=== PATIENT | female | born 1970 | race Caucasian/White ===

== ENCOUNTER 2018-05-06 08:52 | Outpatient (CLI) | payer OTHER ==
[2018-05-06] MEDS ORDERED: Iopamidol 370 76% 100 ML VIAL ONE (09:00)
--- NOTE | 2018-05-06 14:29 | CT ---
CT ABDOMEN AND PELVIS WITH IV CONTRAST: Technique: Multiple axial tomograms were obtained through the abdomen and pelvis with IV enhancement. Indication: Right lower quadrant abdominal pain. FINDINGS: Lung bases appear clear. The liver, spleen, and pancreas are unremarkable. Post cholecystectomy changes noted. Stomach and duo denum unremarkable. Adrenal glands normal. Kidneys unremarkable. Small bowel loops appear normal. The appendix is identified and appears normal. Colon unremarkable. A deyanira normal caliber. Images through pelvis show evidence of hysterectomy. Bone windows show symmetric sclerosis along the iliac side of both SI joints. Focal sclerosis in the right iliac wing suggest a bone island. IMPRESSION: No evidence of acute abnormality. POS: [facility]
== END 2018-05-06 08:53 | disposition home or self-care (01) ==
LOC: SCSCT 08:52
PROVIDERS: ATTEND Family Medicine
DX: R10.30 Lower abdominal pain, unspecified (principal)
CPT/HCPCS: 74177

== ENCOUNTER 2020-01-15 06:12 | Outpatient (CLI) | payer OTHER ==
[2020-01-15 10:12] LABS: #Basophils 0.1 thou/uL (0.0-0.2); #Eosinphils 0.2 thou/uL (0.0-0.7); #Lymphocytes 3.3 thou/uL (1.20-3.40); #Monocytes 0.6 thou/uL (0.11-0.59); #Neutrophils 7.4 thou/uL (1.40-6.50); %Basophils 0.6 % (0.0-1.0); %Eosinophils 1.4 % (0.0-10.0); %Monocytes 4.8 % (0.0-10.0); %Neutrophils 64.2 % (42.0-75.0); Mean Corpuscular HGB CONC 33.5 g/dL (32.0-36.0); Mean Corpuscular Hemoglobin 30.4 pg (27.0-31.0); Mean Corpuscular Volume 90.9 fL (78.0-98.0); Mean Platelet Volume 7.2 fL (7.4-10.4); Platelet Count 355 thou/uL (130-400); Red Blood Cell (RBC) Count 3.94 mill/uL (4.20-5.40); White Blood Cell (WBC) Count 11.5 thou/uL (4.8-10.8)
[2020-01-16 11:37] LABS: SARS-CoV-2 MS2 Positive; SARS-CoV-2 N Gene Negative; SARS-CoV-2 S Gene Negative; SARS-CoV-2 orf1ab Negative
== END 2020-01-15 06:13 | disposition home or self-care (01) ==
LOC: LABBT 06:12
PROVIDERS: ATTEND Surgery
DX: Z01.812 Encounter for preprocedural laboratory examination (principal); Z11.59 Encounter for screening for other viral diseases; N60.82 Other benign mammary dysplasias of left breast
CPT/HCPCS: 87635; U0003

== ENCOUNTER 2020-01-19 12:20 | Day surgery (SDC) | payer OTHER ==
[2020-01-14 14:38] VITALS: BMI 26.4
[~2020-01-19 12:20] MED LIST: Lidocaine 1% PF 5 ML VIAL ONE; Ondansetron PF 4 MG/2 ML Vial ONE; PROPOFOL 200 MG/20 ML VIAL ONE; diphenhydrAMINE 50 MG/ML VIAL ONE
[2020-01-19] MEDS ORDERED: Fentanyl 100 MCG/2 ML VIAL ONE (15:15)
[2020-01-19] MEDS ORDERED: Bupivacaine PF 0.5% 30 ML VIAL ONE (15:19)
[2020-01-19] MEDS ORDERED: Lidocaine 2% PF 5 ML VIAL ONE (15:19)
--- NOTE | 2020-01-20 06:38 | OP ---
DATE OF PROCEDURE: 01/19/2020 PREOPERATIVE DIAGNOSIS: Left breast abscess. PROCEDURE PERFORMED: Excision of left breast abscess. INDICATIONS: The patient is a 49-year-old female, who has had chronic sinus drainage from her left breast with erythema, did not respond to antibiotics. FINDINGS: About 1.5-cm firm mass containing purulent fluid. DESCRIPTION OF PROCEDURE: After informed consent was obtained, the patient was taken to the operating room, given general endotracheal anesthesia, placed in the supine position. Her breast was prepped and draped in usual fashion. Local anesthesia was infiltrated subcutaneously and deep. An elliptical circumareolar incision was performed. The mass was excised. Cultures were obtained, sent for culture sensitivity and Gram-stain. The mass was sent to Pathology for further analysis. Hemostasis was achieved with electrocautery. The wound was thoroughly irrigated and packed open with Betadine gauze. Sterile bandage applied. The patient tolerated the procedure well, transferred to Recovery in good condition. Sponge and needle count verified correct x2. Job ID: [id number]
== END 2020-01-19 17:20 | disposition home or self-care (01) ==
LOC: SDC 12:20
PROVIDERS: ATTEND Surgery
PROC: 0HBU0ZZ Excision of Left Breast, Open Approach (ICD-10-PCS; principal; 2020-01-19)
DX: N61.1 Abscess of the breast and nipple (principal); E11.9 Type 2 diabetes mellitus without complications; F17.210 Nicotine dependence, cigarettes, uncomplicated; Z79.84 Long term (current) use of oral hypoglycemic drugs; Z79.899 Other long term (current) drug therapy; Z88.2 Allergy status to sulfonamides; Z88.5 Allergy status to narcotic agent
CPT/HCPCS: 36416; 87070; 87076; 87205; 88305; J0690; J1200; J2001; J2405; J2704; J3010; S0020

== ENCOUNTER 2020-06-07 06:16 | Outpatient (CLI) | payer OTHER ==
[2020-06-07 09:54] LABS: #Eosinphils 0.3 10x3/uL (0.0-0.5); #Monocytes 0.6 10x3/uL (0.0-1.1); #Neutrophils 6.2 10x3/uL (1.5-8.4); %Basophils 0.4 % (0.0-2.0); %Eosinophils 2.7 % (0.0-6.0); %Lymphocytes 29.6 % (18.0-47.0); %Monocytes 5.8 % (0.0-10.0); %Neutrophils 60.7 % (40.0-75.0); Hemoglobin 12.3 g/dL (12.0-16.0); Mean Corpuscular HGB CONC 33.7 G/DL (32.0-36.0); Mean Corpuscular Hemoglobin 29.9 PG (27.0-33.0); Mean Corpuscular Volume 88.8 fl (80.0-100.0); Mean Platelet Volume 9.2 fl (7.4-10.4); Platelet Count 348 10x3/uL (130-400); RBC Distribution Width 13.3 % (11.5-14.5); Red Blood Cell (RBC) Count 4.11 10x6/uL (3.90-5.20); White Blood Cell (WBC) Count 10.2 10x3/uL (4.5-11.0)
[2020-06-07 23:33] LABS: SARS-CoV-2 MS2 Positive; SARS-CoV-2 N Gene Negative; SARS-CoV-2 S Gene Negative; SARS-CoV-2 by NAA Not Detected (NotDetected); SARS-CoV-2 orf1ab Negative
== END 2020-06-07 06:17 | disposition home or self-care (01) ==
LOC: LABBT 06:16
PROVIDERS: ATTEND Surgery
DX: Z01.812 Encounter for preprocedural laboratory examination (principal); Z20.828 Contact with and (suspected) exposure to other viral communicable diseases; N64.52 Nipple discharge
CPT/HCPCS: 85025; 87635; U0003

== ENCOUNTER → 2020-06-10 | Day surgery (SDC) | payer OTHER ==
[2020-06-09 11:53] VITALS: BMI 34.2
[~2020-06-10] MED LIST changes: +Bupivacaine 0.25% HCL 30 ML VIAL ONE; +Famotidine/PF 20 mg/2ml Vial ONE; -Lidocaine 1% PF 5 ML VIAL ONE; +Lidocaine 1% w/Epinephrine 1:100K 20 ML VIAL ONE; -PROPOFOL 200 MG/20 ML VIAL ONE; +Scopolamine 1.5 mg/72 hour Patch ONE; -diphenhydrAMINE 50 MG/ML VIAL ONE
== END ==
LOC: SDC 06:11
PROVIDERS: ATTEND Surgery
DX: N64.52 Nipple discharge (principal); E11.9 Type 2 diabetes mellitus without complications; F17.210 Nicotine dependence, cigarettes, uncomplicated; Z53.9 Procedure and treatment not carried out, unspecified reason; Z79.84 Long term (current) use of oral hypoglycemic drugs; Z79.899 Other long term (current) drug therapy; Z88.2 Allergy status to sulfonamides; Z88.5 Allergy status to narcotic agent
CPT/HCPCS: J0690; J2405; S0020; S0028

== ENCOUNTER 2020-07-08 08:54 | Day surgery (SDC) | payer OTHER ==
[~2020-07-08 08:54] MED LIST changes: -Famotidine/PF 20 mg/2ml Vial ONE; +Fentanyl 100 MCG/2 ML VIAL ONE; -Ondansetron PF 4 MG/2 ML Vial ONE; -Scopolamine 1.5 mg/72 hour Patch ONE
[2020-07-08] MEDS ORDERED: Famotidine/PF 20 mg/2ml Vial ONE (09:08)
[2020-07-08] MEDS ORDERED: Scopolamine 1.5 mg/72 hour Patch ONE (09:19)
[2020-07-08] MEDS ORDERED: PROPOFOL 0 ML ONE (09:47)
[2020-07-08] MEDS ORDERED: PROPOFOL 20 ML ONE (10:02)
[2020-07-08] MEDS ORDERED: Fentanyl 100 MCG/2 ML VIAL ONE ×2 (10:38→11:22)
--- NOTE | 2020-07-08 10:54 | OP ---
DATE OF PROCEDURE: 07/08/2020 PREOPERATIVE DIAGNOSIS: Left nipple discharge. PROCEDURE PERFORMED: Lactiferous duct excision, left breast. INDICATIONS: This is a 49-year-old female, who has had a previous abscess in the left breast and has intermittent drainage from the central nipple. FINDINGS: There was a dilated duct central, slightly medial that was where the fluid was coming from. The duct was dilated underneath the nipple and was excised entirely. DESCRIPTION OF PROCEDURE: After informed consent was obtained, the patient was taken to the operating room and given general endotracheal anesthesia. She was placed in the supine position. Her left chest was prepped and draped in usual fashion. The nipple was examined. Using massage, I was able to express some fluid that was coming from the near center just slightly medial. This was cannulated with a 3-0 Prolene suture. Then, a circumareolar incision was performed to excise the old scar and a subareolar dissection was performed underneath the nipple. The duct was found and was dissected out and then amputated. It was then excised to include the skin because it was like a sidetracked fistula. Cultures were obtained, but there was really scant fluid, did not appear to be infected. The hemostasis was achieved with electrocautery. The wound was thoroughly irrigated. Subcu reapproximated with interrupted 3-0 Vicryl. Skin closed with a running subcuticular 4-0 Rapide. Steri-Strips applied. Sterile bandage applied. The patient tolerated the procedure well, transferred to Recovery in good condition. Sponge and needle count verified correct x2. Job ID: [id number]
[2020-07-08] MEDS ORDERED: PROPOFOL 200 MG/20 ML VIAL ONE (10:58)
[2020-07-08] MEDS ORDERED: Dexamethasone 20 MG/5 ML VIAL ONE (10:58)
[2020-07-08] MEDS ORDERED: Rocuronium Bromide 10 MG/ML (10ML VIAL) ONE (10:58)
[2020-07-08] MEDS ORDERED: Ondansetron PF 4 MG/2 ML Vial ONE (10:58)
[2020-07-08] MEDS ORDERED: diphenhydrAMINE 50 MG/ML VIAL ONE (10:58)
[2020-07-08] MEDS ORDERED: Glycopyrrolate 0.2 MG/ML 5 ML SYRINGE ONE (10:58)
[2020-07-08] MEDS ORDERED: Lidocaine 1% PF 5 ML VIAL ONE ×2 (10:58)
[2020-07-08] MEDS ORDERED: Albuterol Sulfate HFA (OR ONLY) ONE (10:58)
[2020-07-08] MEDS ORDERED: PHENYLEPHRINE-NS 100 MCG/ML 10 ML SYRINGE ONE (10:58)
[2020-07-08] MEDS ORDERED: Succinylcholine 200 MG/10 ml SYRINGE FS ONE (10:58)
[2020-07-08] MEDS ORDERED: HYDROcodone/Acetaminophen 5/325 mg Tablet ONE ×2 (13:31→14:09)
== END 2020-07-08 14:15 | disposition home or self-care (01) ==
LOC: SDC 08:54
PROVIDERS: ATTEND Surgery
PROC: 0HBU0ZZ Excision of Left Breast, Open Approach (ICD-10-PCS; principal; 2020-07-08)
DX: N60.42 Mammary duct ectasia of left breast (principal); E11.9 Type 2 diabetes mellitus without complications; F17.210 Nicotine dependence, cigarettes, uncomplicated; Z79.84 Long term (current) use of oral hypoglycemic drugs; Z88.2 Allergy status to sulfonamides; Z88.5 Allergy status to narcotic agent
CPT/HCPCS: 87070; 87076; 87205; 88307; J0690; J1100; J1200; J2405; J2704; J3010; S0020; S0028